=== PATIENT | female | born 1950 | race Caucasian/White ===

== ENCOUNTER → 2017-01-29 | Outpatient (CLI) | payer MEDICARE ==
--- NOTE | 2017-01-29 13:06 | CONS ---
DATE OF CONSULTATION: 01/29/2017 CONSULTATION/NEW PATIENT EVALUATION A 67-year-old lady who has been evaluated in the sleep center for obstructive sleep apnea/hypopnea syndrome. HISTORY OF PRESENT ILLNESS/SLEEP-WAKE EVALUATION: Patient had been diagnosed with obstructive sleep apnea about 9 years ago. At that time was started on treatment with CPAP but she has difficulties with CPAP, was not able to use it and underwent UPPP and nasal surgery. After surgery she feels better, improved her sleep and felt okay until about one year ago when she increased her weight again developed symptoms of awakenings from sleep and tiredness, snoring. SLEEP SCHEDULE: Presently patient's sleep schedule from around 11 p.m. until 8 a.m. FALLING ASLEEP: She sometimes has problem with falling asleep. She has TV set in bedroom. DURING SLEEP: Usually sleeps in the back and side position. According to her , she developed extremely loud snoring at the present time. She wakes up from sleep 2 times with nocturia. DURING THE DAY/WAKE STATE: [place] Sleepiness Scale S4. No history of hypnagogic hallucinations, sleep paralysis or cataplexy. PAST MEDICAL HISTORY: Positive for possible epilepsy with 2 episodes of losing consciousness in her life, which have been stopped on treatment with Dilantin. After stopping Dilantin, she had another episode, hypothyroidism, hyperlipidemia, back problems. PAST SURGICAL HISTORY: , cholecystectomy, UPPP, nasal surgery. tonsillectomy. MEDICATIONS: Dilantin, phenytoin, levothyroxine, Lipitor, Flexeril. SOCIAL HISTORY: Negative for smoking or using alcohol. REVIEW OF SYSTEMS: Snoring, multiple awakenings from sleep, back pain, neck pain. No fevers. No double vision. No recent chest pain. No shortness of breath. No abdominal pain. No bleeding episodes. No blood in urine. No seizure episodes. FAMILY HISTORY: Heart problems, stroke, fibromyalgia, arthritis, asthma, sleep apnea, snoring, ( ), lung problems, diabetes, thyroid problems, acid reflux, ulcers. PHYSICAL EXAMINATION: GENERAL: A 67-year-old lady without distress. VITAL SIGNS: BP 122/92, HR 84, RR 16. Height 5 feet 2 inches. Weight 177. BMI 32.3. Neck 13-1/2 inches in circumference. Temperature 99.2. Oxygen saturation at room air 93%. HEENT: PERRRITESH, NICHOLASMI. Evaluation of oropharynx showed extremely low position of soft palate, restriction of the nasal breathing more on the left side. NECK: Supple. No JVD. Thyroid is not palpable. LUNGS: Clear to percussion and to auscultation. Good air exchange. No wheezing or rhonchi. HEART: S1, S2 regular. No murmurs, gallops or rubs. ABDOMEN: Slightly obese. EXTREMITIES: No clubbing or cyanosis. ASTROCHEMIST: Awake, alert, and oriented x3. Cranial nerves 2 to 7 intact. There is no fasciculation or atrophy noted. No focal deficits observed. IMPRESSION: 1. Snoring, multiple awakenings from sleep, extremely low position of soft palate, history of sleep apnea diagnosed 9 years ago, obstructive sleep apnea-hypopnea syndrome. 2. Mild obesity, body mass index of 32.3. 3. History of possible epilepsy on treatment with Dilantin and phenytoin. 4. Hypothyroidism. 5. Hyperlipidemia. 6. Back pain. 7. Neck pain. 8. Status post section. 9. Status post cholecystectomy. 10. Status post UPPP, tonsillectomy and nasal surgery by Dr. Pa. PLAN: 1. Polysomnography for evaluation of patient's breathing during sleep. 2. CPAP/BiPAP titration if sleep study confirms obstructive sleep apnea-hypopnea syndrome. 3. Preferable position during sleep on the side. 4. No driving if patient feels any sleepiness. Patient is aware of civil and criminal liability for unsafe driving. 5. I will see patient for follow-up visit to explain results of the testing and following plan. Thank you very much for referring this patient for consultation. Sincerely, Shamir Suarez MD, PhD, FAASM. Diplomat of [place] [employer], Sleep Medicine Board by [place] [employer] [employer] [facility] [place]
== END | disposition home or self-care (01) ==
LOC: SLEEP 11:20
PROVIDERS: ATTEND Internal Medicine
DX: G47.33 Obstructive sleep apnea (adult) (pediatric) (principal); E03.9 Hypothyroidism, unspecified; E78.5 Hyperlipidemia, unspecified; E66.9 Obesity, unspecified; Z68.32 Body mass index [BMI] 32.0-32.9, adult; Z90.49 Acquired absence of other specified parts of digestive tract; Z90.89 Acquired absence of other organs; Z79.899 Other long term (current) drug therapy
CPT/HCPCS: 99211

== ENCOUNTER → 2017-07-22 | Outpatient (CLI) | payer MEDICARE | END | disposition home or self-care (01) | LOC: LABWHC1 12:56 | PROVIDERS: ATTEND Family Medicine | DX: Z00.01 Encounter for general adult medical examination with abnormal findings (principal) | CPT/HCPCS: 36415; 93005 ==

== ENCOUNTER 2017-08-07 16:30 | Emergency (ER) | payer MEDICARE ==
[2017-08-07 16:36] VITALS: RESP 18
--- NOTE | 2017-08-07 16:54 | ED ---
Fall HPI - General Chief Complaint: Fall Stated Complaint: Fall Time Seen by Provider: 08/07/17 16:40 Source: patient, family Mode of arrival: wheelchair - History of Present Illness Initial Comments: This is a 67-year-old female who states she tripped in a garage and fell landing on the right side of her forehead. She also did not have this earlier were now complains of right wrist pain she believes she had her outstretched hand help shield her during the fall. As a loss of consciousness blurry vision and pain to her thoracic or lumbar spine no hip knee ankle foot pain. She initially did not complain of the pain in the neck that she now states she has some also again with respect to the right wrist he does have pain where she didn 't initially. This injury occurred just prior to admission. Patient is not on any blood thinners. MD Complaint: fall - Related Data Home Medications Medication Instructions Recorded Confirmed Atorvastatin [Lipitor] 10 mg PO HS 05/18/14 08/07/17 Levothyroxine Sodium [Synthroid] 25 mcg PO QAM 05/18/14 08/07/17 Phenytoin Sodium Extended 200 mg PO HS 05/18/14 08/07/17 [Dilantin] Aspirin 81 mg PO HS 08/07/17 08/07/17 Cholecalciferol (Vitamin D3) 2,000 unit PO QAM 08/07/17 08/07/17 [Vitamin D3] Cyanocobalamin (Vitamin B-12) 1,000 mcg PO DAILY 08/07/17 08/07/17 [Vitamin B-12] Cyclobenzaprine [Flexeril] 10 mg PO DAILY 08/07/17 08/07/17 Adriel Red 300mg 300 mg PO DAILY 08/07/17 08/07/17 Phenytoin Sodium Extended 100 mg PO QAM 08/07/17 08/07/17 [Dilantin] Previous Rx's Medication Instructions Recorded Ibuprofen 800 mg PO Q6HR PRN #20 tablet 08/07/17 Allergies Allergy/AdvReac Type Severity Reaction Status Date / Time No Known Allergies Allergy Verified 08/07/17 16:57 Review of Systems ROS Statement: Those systems with pertinent positive or pertinent negative responses have been documented in the HPI. ROS Other: All systems not noted in ROS Statement are negative. Past Medical History Past Medical History: Hyperlipidemia, Seizure Disorder, Sleep Apnea/CPAP/BIPAP Additional Past Medical History / Comment(s): HX OF "BLACKOUTS AND 1 SEIZURE APPROX 10 YRS AGO",HAVING PAIN RT LOWER ABDOMINAL QUAD History of Any Multi-Drug Resistant Organisms: None Reported Past Surgical History: Section, Cholecystectomy, Tubal Ligation Additional Past Surgical History / Comment(s): CSECTX2 Past Anesthesia/Blood Transfusion Reactions: Motion Sickness Past Psychological History: No Psychological Hx Reported Smoking Status: Never smoker Past Alcohol Use History: None Reported Past Drug Use History: None Reported General Exam - General Exam Comments Initial Comments: This is a well-developed well-nourished awake alert oriented 3 female she demonstrated Carol Coma Scale of 15. Limitations: no limitations General appearance: alert, anxious Head exam: Present: normocephalic, other (Ecchymosis and swelling noted over the right forehead and frontal scalp no step-off or crepitation.) Eye exam: Present: normal appearance, PERRL, EOMI. Absent: scleral icterus, conjunctival injection, periorbital swelling ENT exam: Present: normal exam, mucous membranes moist Neck exam: Present: normal inspection, tenderness, other (Tennis palpation of the paraspinous muscles of the mid cervical level no definite spinous process tenderness. No step-off or crepitation). Absent: lymphadenopathy Respiratory exam: Present: normal lung sounds bilaterally. Absent: respiratory distress, wheezes, rales, rhonchi, stridor Cardiovascular Exam: Present: regular rate, normal rhythm, normal heart sounds. Absent: systolic murmur, diastolic murmur, rubs, gallop, clicks GI/Abdominal exam: Present: soft, normal bowel sounds. Absent: distended, tenderness, guarding, rebound, rigid Rectal exam: Present: deferred Extremities exam: Present: normal inspection, full ROM, tenderness, normal capillary refill, other (Tenderness palpation over the anatomical snuffbox on the right no tenderness palpation of the radius or ulna no tenderness of the right hand proximal to the pain no tenderness.) Neurological exam: Present: alert, oriented X3, CN II-XII intact Psychiatric exam: Present: normal affect, normal mood Skin exam: Present: warm, dry, intact. Absent: rash Course Vital Signs 08/07/17 16:32 Temperature 98.7 F Pulse Rate 78 Respiratory 18 Rate Blood Pressure 146/66 O2 Sat by Pulse 99 Oximetry Procedures - Orthopedic Splinting/Casting Injury #1 Side: right Upper Extremity Injury Location: wrist Upper Extremity Immobilizer: thumb spica Medical Decision Making - Medical Decision Making I did discuss findings with the patient and her . Patient will be discharged he CT is negative for acute findings she has no evidence of concussion at this time. We discharged with orthopedic follow-up. - EKG Data -: EKG Interpreted by Me EKG shows normal: sinus rhythm, axis, intervals, QRS complexes, ST-T waves (EKG shows normal sinus rhythm of 74. Interval 140 QRS duration 72 QT since QTC of 380/421 ST-T WAVE changes) Rate: normal - Radiology Data Radiology results: report reviewed (I did review the imaging and report no acute evidence of fractures or subluxations.), image reviewed Disposition Clinical Impression: Fall, Scaphoid fracture of wrist, Forehead contusion Disposition: HOME SELF-CARE Condition: Good Instructions: Fall Prevention for Older Adults (ED), Scaphoid Fracture (ED), Scalp Contusion in Adults (ED) Prescriptions: Ibuprofen 800 mg PO Q6HR PRN #20 tablet PRN Reason: Pain Referrals: Sharif Rivera DO [Primary Care Provider] - 1-2 days
--- NOTE | 2017-08-07 17:41 | CT ---
EXAMINATION TYPE: CT brain julian schrader DATE OF EXAM: 08/07/2017 COMPARISON: Head CT scan 01/23/2011 HISTORY: Fall injury today. CT DLP: 1467.2 mGycm Automated exposure control for dose reduction was used. TECHNIQUE: CT scan of the head and cervical spine are performed without contrast. FINDINGS: There is large right frontal scalp hematoma. The calvarium appears intact. Ventricles of normal size. There is no mass effect nor midline shift. There is no sign of intracrania l hemorrhage. I see no skull fracture. The cervical vertebra have normal alignment. There is minor degenerative disc changes at C5-6 and C6- 7. Facet joints are intact. Skull base is intact. There is no evidence of a fracture. IMPRESSION: Right frontal scalp hematoma. No intracranial abnormality. Brain is unchanged compared to MR scan of 01/23/2011. Negative CT scan of the cervical spine. No fracture.
--- NOTE | 2017-08-07 17:43 | XR ---
EXAMINATION TYPE: XR wrist complete RT DATE OF EXAM: 08/07/2017 COMPARISON: NONE HISTORY: Wrist pain TECHNIQUE: 4 views FINDINGS: There is some spurring at the scaphoid trapezium joint. I see no fracture nor dislocation. Distal radius and ulna are intact. IMPRESSION: Minor arthritic changes. No fracture.
[2017-08-07 18:50] VITALS: BP 126/60; PULSE 82; TEMP 97.8
== END 2017-08-07 18:59 | disposition home or self-care (01) ==
LOC: EC 16:30
DX: S62.001A Unspecified fracture of navicular [scaphoid] bone of right wrist, initial encounter for closed fracture (principal); S00.83XA Contusion of other part of head, initial encounter; E78.5 Hyperlipidemia, unspecified; G40.909 Epilepsy, unspecified, not intractable, without status epilepticus; G47.30 Sleep apnea, unspecified; Z99.89 Dependence on other enabling machines and devices; Z79.82 Long term (current) use of aspirin; Z79.899 Other long term (current) drug therapy; W19.XXXA Unspecified fall, initial encounter
CPT/HCPCS: 29125; 70450; 72125; 93005; 99284

== ENCOUNTER → 2017-08-27 | Outpatient (CLI) | payer MEDICARE ==
--- NOTE | 2017-08-27 10:17 | MM ---
Reason for exam: additional evaluation requested from prior study. Last mammogram was performed 15 years and 5 months ago. History: Patient is postmenopausal. Family history of breast cancer in maternal aunt at age 70. Excisional biopsy of the right breast, 1979. Took estrogen for 1 year 7 months. Took progesterone for 1 year 7 months. Physical Findings: Nurse did not find any significant physical abnormalities on exam. MG 3D Diag Mammo W/Cad GABE Bilateral CC and MLO view(s) were taken. Prior study comparison: August 26, 2016, mammogram, performed at [facility]. February 05, 2016, mammogram, performed at [facility]. January 23, 2015, mammogram, performed at [facility]. There are scattered fibroglandular densities. There is no discrete abnormality including area of concern. No significant new findings when compared with previous films. These results were verbally communicated with the patient and result sheet given to the patient on 08/27/17. ASSESSMENT: Negative, BI-RAD 1 RECOMMENDATION: Routine screening mammogram of both breasts in 1 year.
== END | disposition home or self-care (01) ==
LOC: RADMAMWWP 09:22
PROVIDERS: ATTEND Family Medicine
DX: R92.2 Inconclusive mammogram (principal)
CPT/HCPCS: G0204; G0279

== ENCOUNTER → 2017-10-01 | Outpatient (CLI) | payer MEDICARE ==
--- NOTE | 2017-10-01 11:51 | PN ---
PROGRESS NOTE FOLLOW-UP VISIT DATE OF SERVICE: 10/01/2017 A 67-year-old lady had been followed in sleep center for treatment of obstructive sleep apnea-hypopnea syndrome. According to home sleep apnea test, the apnea-hypopnea index 26. During the previous visit in June of 2017. apnea-hypopnea index reading from her machine was in average range 7.3 and I increased pressure in her CPAP unit to 8 cm of water. At that time it was 7 cm of water. Patient continued to use her CPAP equipment without significant problems related to mask, pressure, humidity. Sometimes she has difficulties to breathe through her nose. She is using with that treatment she breathes better. [place] Sleepiness Scale is 2. No snoring with the machine. I checked patient's CPAP unit. CPAP pressure is 8 cm of water. Ramp is 15 minutes. The usage is 100% of the time more than 4 hours, average 8.4 hours. Leak is 11 L/minute, which is acceptable in normal range. Apnea-hypopnea index for the last month is 5.4. MEDICATIONS: Phenytoin, Dilantin, levothyroxine, Lipitor, Flexeril, and Zyrtec on p.r.n. basis. PHYSICAL EXAM: During physical exam, patient in no distress. VITAL SIGNS: BP 132/58, HR 80, RR 16, height 5 feet 2 inches, weight 182, BMI 33.1, temperature 98.6. HEENT: PERRLA, EOMI. Evaluation of oropharynx showed low position of soft palate. NECK: Supple, no JVD. Thyroid is not palpable. LUNGS: Clear to percussion and to auscultation. Good air exchange. No wheezing or rhonchi. HEART: S1, S2 regular. No murmurs, gallops, or rubs. ABDOMEN: Slightly obese. EXTREMITIES: No clubbing or cyanosis. MILK ROUTE DELIVERER: Awake, alert, and oriented X3. Cranial nerves 2 to 7 intact. There is no fasciculation or atrophy. noted. No focal deficits observed. IMPRESSION: 1. Moderate to close severe obstructive sleep apnea-hypopnea syndrome; apnea-hypopnea index 26 by results of home sleep apnea test, most on control with CPAP at 8 cm of water. Patient demonstrated 100% compliance with treatment benefitting from treatment. 2. Mild obesity. 3. History of possible epilepsy. 4. Hypothyroidism. 5. Hyperlipidemia. 6. History of neck pain. 7. Status post . 8. Status post cholecystectomy. 9. Status post UPPP and tonsillectomy. PLAN: 1. Continue treatment with CPAP every night for the whole night with a pressure 8 cm of water. 2. Losing weight. 3. Sleep hygiene with regular time in bed for at least 8 hours. 4. No driving if feeling sleepiness. Thank you very much for allowing me to participate in management of your patient. Sincerely, Shamir Suarez MD, PhD, FAASM Diplomat of [place] [employer] [place] [employer] [facility] [place] MMODL / IJN: [id number] /
== END | disposition home or self-care (01) ==
LOC: SLEEP 09:57
PROVIDERS: ATTEND Internal Medicine
DX: G47.33 Obstructive sleep apnea (adult) (pediatric) (principal); E66.9 Obesity, unspecified; E03.9 Hypothyroidism, unspecified; E78.5 Hyperlipidemia, unspecified; M54.2 Cervicalgia; Z79.899 Other long term (current) drug therapy; Z90.49 Acquired absence of other specified parts of digestive tract; Z99.89 Dependence on other enabling machines and devices; Z98.890 Other specified postprocedural states

== ENCOUNTER → 2017-12-25 | Outpatient (CLI) | payer MEDICARE ==
[2017-12-25 11:10] LABS: Basophils % (A) 1 %; Eosinophils # (A) 0.1 k/uL (0-0.7); Eosinophils % (A) 1 %; HCT 44.7 % (34.0-46.0); HGB 14.9 gm/dL (11.4-16.0); Lymphocytes # (A) 1.4 k/uL (1.0-4.8); Lymphocytes % (A) 25 %; MCH 31.3 pg (25.0-35.0); MCHC 33.3 g/dL (31.0-37.0); Monocytes # (A) 0.3 k/uL (0-1.0); Monocytes % (A) 5 %; Neutrophils % (A) 68 %; Platelet Count 209 k/uL (150-450); RBC 4.76 m/uL (3.80-5.40); RDW 12.7 % (11.5-15.5); WBC 5.9 k/uL (3.8-10.6)
[2017-12-25 11:31] LABS: Phenytoin (Dilantin) 13.2 ug/mL
[2017-12-25 16:45] LABS: Protein, Total 7.1 g/dL (6.2-8.2)
[2017-12-28 14:07] LABS: Albumin 4.62 g/dL (3.80-4.90); Gamma Globulin 0.79 g/dL (0.70-1.50)
[2017-12-29 12:30] LABS: Lyme IgG/IgM 0.1 Index
[2017-12-30 19:47] LABS: Arsenic Whole Blood < 2 mcg/L (< 23); Mercury Whole Blood < 2 mcg/L (< 11)
== END | disposition home or self-care (01) ==
LOC: LABWHC1 10:30
PROVIDERS: ATTEND Psychiatry & Neurology Neurology
DX: G90.09 Other idiopathic peripheral autonomic neuropathy (principal); G40.009 Localization-related (focal) (partial) idiopathic epilepsy and epileptic syndromes with seizures of localized onset, not intractable, without status epilepticus
CPT/HCPCS: 36415; 80185; 82175; 82570; 83655; 83825; 84165; 84450; 84460; 85025; 86618

== ENCOUNTER → 2019-02-11 | Outpatient (CLI) | payer MEDICARE ==
--- NOTE | 2019-02-14 09:03 | MM ---
Reason for exam: screening (asymptomatic). Last mammogram was performed 1 year and 6 months ago. History: Patient is postmenopausal. Family history of breast cancer in maternal aunt at age 70. Excisional biopsy of the right breast, 1979. Took estrogen for 1 year 7 months. Took progesterone for 1 year 7 months. Physical Findings: A clinical breast exam by your physician is recommended on an annual basis and results should be correlated with mammographic findings. MG 3D Screening Mammo W/Cad Bilateral CC and MLO view(s) were taken. Prior study comparison: August 27, 2017, bilateral MG 3d diag mammo w/cad GABE. August 26, 2016, mammogram, performed at [facility]. There are scattered fibroglandular densities. No suspicious abnormality. No significant changes when compared with prior studies. ASSESSMENT: Negative, BI-RAD 1 RECOMMENDATION: Routine screening mammogram of both breasts in 1 year.
== END | disposition home or self-care (01) ==
LOC: RADMAMWWP 09:09
PROVIDERS: ATTEND Family Medicine
DX: Z12.31 Encounter for screening mammogram for malignant neoplasm of breast (principal)
CPT/HCPCS: 77063; 77067

== ENCOUNTER → 2019-05-05 | Outpatient (CLI) | payer MEDICARE ==
[2019-05-05 12:57] LABS: African American GFR (CKD) >90 (>60 ml/min/1.73 sqM); Blood Urea Nitrogen 23 mg/dL (7-17)
--- NOTE | 2019-05-05 14:51 | CT ---
EXAMINATION TYPE: CT abdomen pelvis w con DATE OF EXAM: 05/05/2019 HISTORY: Hematuria x6 months CT DLP: 1034.6mGycm Automated Exposure Control for Dose Reduction was Utilized. CONTRAST: CT scan of the abdomen and pelvis is performed with IV Contrast, patient injected with 100 mL of Isov ue 300. COMPARISON: CT abdomen and pelvis August 14, 2011 FINDINGS: LUNG BASES: Dependent atelectasis bilaterally. Right basilar linear scarring and/or atelectasis. Stab le tiny pericardial effusion. LIVER/GB: Scattered subcentimeter hypodense lesions throughout the liver are too small to further shivani racterize for presumed benign. Few are greater than 1 cm consistent with simple thin-walled cysts. Ch olecystectomy clips are redemonstrated. PANCREAS: No significant abnormality is seen. SPLEEN: No significant abnormality is seen. ADRENALS: No significant abnormality is seen. KIDNEYS: Symmetric cortical medullary uptake and excretion without hydronephrosis seen bilaterally. S imple appearing parapelvic cysts are noted bilaterally more prominent in the left kidney versus right kidney. Bladder show satisfactory distention without intraluminal mass or wall thickening. Some enrique cent left-sided pelvic phleboliths are noted. BOWEL: Oral contrast reaches level of the terminal ileum making evaluation of colon suboptimal. No valdes spicious small large bowel dilatation. Some prominence of fecal material in the right and transverse colon is noted. Findings consistent with mild proximal colonic fecal stasis. UTERUS/ADNEXA: Anteverted uterus. Ovaries are normal in size in the adnexa. LYMPH NODES: No greater than 1cm abdominal or pelvic lymph nodes are appreciated. OSSEOUS STRUCTURES: No significant abnormality is seen. OTHER: Mild calcified plaque of the aorta with more prominent focal calcified plaque anterior left re nal artery at origin. IMPRESSION: 1. No significant findings is seen to account for patient's clinical symptoms of hematuria. In partic ular no suspicious mass or renal calculus noted bilaterally.
== END | disposition home or self-care (01) ==
LOC: RADCTMAIN 12:23
PROVIDERS: ATTEND Urology
DX: R31.9 Hematuria, unspecified (principal)
CPT/HCPCS: 82565; 84520; 74177; 36415; Q9967

== ENCOUNTER → 2019-07-19 | Outpatient (CLI) | payer MEDICARE ==
--- NOTE | 2019-07-19 14:20 | CONS ---
CONSULTATION CONSULTATION NOTE: For sleep apnea. This is a 69-year-old female patient who is coming in to establish herself with me regarding her obstructive sleep apnea treatment. The patient was diagnosed having JESSICA back in 2018. At that time, she was given an AHI of 26, based on the sleep study that was done at our sleep center. The patient currently is using CPAP at a pressure of 8 cm of water. On today's evaluation, she feels great, she is not having any snoring. She denies quitting breathing in the middle of the night. She is waking up refreshed and alert during the day. She is currently retired. She goes to bed around 11 pm and she sleeps around 8 hours and she wakes up very refreshed and alert during the day. Her current Arnold score is only at 1. She is losing weight and she has lost approximately 15 pounds since her diagnosis of obstructive sleep apnea back in 2018. PAST MEDICAL HISTORY: 1. JESSICA, details above. 2. Hyperlipidemia. 3. Hypothyroidism. 4. History of seizure disorder. PAST SURGICAL HISTORY: Includes tonsillectomy, cholecystectomy, , adenoid resection. SOCIAL HISTORY: Negative for smoking or alcohol. No IV drugs or substance abuse. ALLERGIES: Not known. OUTPATIENT MEDICATION LIST: Includes Dilantin 200 mg 1 in the morning, 2 in the evening, and another 30 mg at bedtime, Levothyroxine 25 mg p.o. q. daily, Lipitor 25 mg p.o. q. daily, aspirin 81 mg p.o. q. daily, vitamin D 1000 units twice a day, Melatonin and Zyrtec and Flonase. REVIEW OF SYSTEMS: A 14-point review of system was done and positive findings are mentioned in history of present illness. No major hypersomnia or sleepiness during the day. PHYSICAL EXAMINATION: BP is 144/98, pulse 82, respirations 16, temp 98.5, saturation 97% on room air. Height is 5, 2, weight 165 pounds and BMI 30.1, neck size is 13-1/2 inches. GENERAL APPEARANCE: Calm, comfortable. HEAD: Atraumatic, normocephalic. NECK: Supple. There is no JVD. No goiter or neck masses. Mallampati class IV. LUNGS: Clear to auscultation. HEART: Heart sounds are regular rate and rhythm. Normal S1, S2. No S3, S4. No murmurs. ABDOMEN: Soft, nontender. No organomegaly. EXTREMITIES: No edema. No cyanosis or clubbing. IMPRESSION: 1. Obstructive sleep apnea, moderately severe. Apnea-hypopnea index of 26, currently on CPAP pressure of 8 with excellent clinical response and compliance. 2. Hypothyroidism. 3. Hyperlipidemia. 4. Chronic seasonal allergies. PLAN: 1. Continue CPAP therapy at the same level of pressure which is 8. 2. Eliminate ramp time. 3. Offer the patient the Nuance Pro medium-size nose pillows. 4. Compliance data was checked. 5. Will see him back in a year's time. Treatment was successful. No need for any further adjustments on today's evaluation. MMODL / IJN: [id number] /
== END | disposition home or self-care (01) ==
LOC: SLEEP 10:01
PROVIDERS: ATTEND Internal Medicine Critical Care Medicine
DX: G47.33 Obstructive sleep apnea (adult) (pediatric) (principal); E03.9 Hypothyroidism, unspecified; E78.5 Hyperlipidemia, unspecified; J30.2 Other seasonal allergic rhinitis; Z79.82 Long term (current) use of aspirin; Z79.899 Other long term (current) drug therapy
CPT/HCPCS: 99211

== ENCOUNTER → 2019-09-22 | Outpatient (CLI) | payer MEDICARE ==
--- NOTE | 2019-09-22 11:17 | USB ---
Reason for exam: clinical finding. History: Patient is postmenopausal. Family history of breast cancer in maternal aunt at age 70. Excisional biopsy of the right breast, 1979. Took estrogen for 1 year 7 months. Took progesterone for 1 year 7 months. Indicated problem(s): lump or thickening in both breasts. Physical Findings: Nurse Summary: patient states she fells a thickness around area of prior biopsy x 2 months (nurse TM). US Breast Limited RT Right limited breast ultrasound including focal area of concern, retroareolar and axilla demonstrates a 4 x 2 x 3mm oval, cystic, well defined, posterior wall lesion at 10 o'clock and a 3 x 2 x 3mm oval, cystic lesion at 12 o'clock. These results were verbally communicated with the patient and result sheet given to the patient on 09/22/19. ASSESSMENT: Benign, BI-RAD 2 RECOMMENDATION: Return to routine screening mammogram schedule for both breasts. Back on schedule.
== END | disposition home or self-care (01) ==
LOC: RADUSWWP 10:06
PROVIDERS: ATTEND Family Medicine
DX: N63.10 Unspecified lump in the right breast, unspecified quadrant (principal)

== ENCOUNTER → 2020-09-12 | Outpatient (CLI) | payer MEDICARE ==
--- NOTE | 2020-09-14 14:12 | MM ---
Reason for exam: screening (asymptomatic). Last mammogram was performed 1 year and 7 months ago. History: Patient is postmenopausal. Family history of breast cancer in maternal aunt at age 70. Excisional biopsy of the right breast, 1979. Took estrogen for 1 year 7 months. Took progesterone for 1 year 7 months. Physical Findings: A clinical breast exam by your physician is recommended on an annual basis and results should be correlated with mammographic findings. MG 3D Screening Mammo W/Cad Bilateral CC and MLO view(s) were taken. Prior study comparison: February 11, 2019, bilateral MG 3d screening mammo w/cad. August 27, 2017, bilateral MG 3d diag mammo w/cad GABE. There are scattered fibroglandular densities. Focal asymmetry anterior 10 o'clock right breast is unchanged. No significant changes when compared with prior studies. ASSESSMENT: Benign, BI-RAD 2 RECOMMENDATION: Routine screening mammogram of both breasts in 1 year.
== END | disposition home or self-care (01) ==
LOC: RADMAMWWP 09:34
PROVIDERS: ATTEND Family Medicine
DX: Z12.31 Encounter for screening mammogram for malignant neoplasm of breast (principal)
CPT/HCPCS: 77063; 77067

== ENCOUNTER → 2020-11-20 | Outpatient (CLI) | payer MEDICARE ==
--- NOTE | 2020-11-20 11:25 | PN ---
PROGRESS NOTE Mirna is 70 and coming in for annual check regarding obstructive sleep apnea. The patient is known to have JESSICA and she has been diagnosed at least 3 years ago and she has been on CPAP since. Her AHI at baseline was 26. On today's evaluation, the patient remains on a CPAP pressure of 8 cm of water. She is using AirFit P10 medium- sized nasal pillow. Her weight is 165, which is stable over the past one year. Based on the compliance data, she has been averaging around 8.8 hours of CPAP use at night and her CPAP use for more than 4 hours is 100%. Leak is around 20 L/minutes. Her AHI is down to 5.6. The patient is refreshed and alert during the day. Blood pressure is stable. No significant issues with hypersomnia or sleepiness. Does not fall asleep during day-to-day activities. She is having some soreness in her nostrils, probably related to the nasal pillows especially when she makes the head gear quite tight. REVIEW OF SYSTEMS: Fourteen-point review of system was done. Positive findings are mentioned in history of present illness. No angina. No palpitations. No chest pain. No heartburn. She is feeling refreshed and alert during the day. Keyser score is at 2. PHYSICAL EXAMINATION: VITAL SIGNS: BP is 140/63, pulse 92, respirations 12, temperature 96.9, saturation 95% on room air. Height is 5 feet 2 inches. Weight is 165, and BMI is 29.6. GENERAL APPEARANCE: Calm, comfortable. HEAD: Atraumatic, normocephalic. NECK: Supple. There is no JVD. No goiter or neck masses. LUNGS: Clear to auscultation. HEART: Heart sounds are regular rate and rhythm. Normal S1, S2. No S3, S4. No murmurs. ABDOMEN: Soft, nontender. No organomegaly. EXTREMITIES: No edema. No cyanosis or clubbing. NEUROLOGIC: Awake and alert. There is no focal neurological deficits. IMPRESSION: 1. Obstructive sleep apnea, moderate severe AHI of 26. The patient is a long-time CPAP and currently she remains on a CPAP pressure of 8 cm of water. 2. Hypersomnia, recovered. 3. History of seizure disorder, which is currently inactive and stable. 4. Hypothyroidism. 5. Hyperlipidemia. PLAN: 1. Continue with CPAP therapy same level of pressure, which is 8. 2. Continue AirFit P10 nasal pillows. 3. I offered a DreamWear under the nose medium-size nose mask as an alternative which will relieve her nostrils from the pressure induced by the pillows. 4. Maintaining good sleep schedule and hygiene measures. 5. See me back in a year's time in followup. 6. Refills were given to [facility]. MMODL / IJN: [id number] /
== END ==
LOC: SLEEP 09:48
PROVIDERS: ATTEND Internal Medicine Critical Care Medicine
DX: G47.33 Obstructive sleep apnea (adult) (pediatric) (principal); E03.9 Hypothyroidism, unspecified; E78.5 Hyperlipidemia, unspecified; Z86.69 Personal history of other diseases of the nervous system and sense organs

== ENCOUNTER → 2021-10-04 | Outpatient (CLI) | payer MEDICARE ==
--- NOTE | 2021-10-07 14:02 | MM ---
Reason for exam: screening (asymptomatic). Last mammogram was performed 1 year and 1 month ago. History: Patient is postmenopausal. Family history of breast cancer in maternal aunt at age 70. Excisional biopsy of the right breast, 1979. Took estrogen for 1 year 7 months. Took progesterone for 1 year 7 months. Physical Findings: A clinical breast exam by your physician is recommended on an annual basis and results should be correlated with mammographic findings. MG 3D Screening Mammo W/Cad Bilateral CC and MLO view(s) were taken. XCCL view(s) were taken of the left breast. Prior study comparison: September 12, 2020, bilateral MG 3d screening mammo w/cad. February 11, 2019, bilateral MG 3d screening mammo w/cad. There are scattered fibroglandular densities. There is chronic nodularity in the left breast. Unchanged anterior focal asymmetries right breast. ASSESSMENT: Benign, BI-RAD 2 RECOMMENDATION: Routine screening mammogram of both breasts in 1 year.
== END | disposition home or self-care (01) ==
LOC: RADMAMWWP 11:43
PROVIDERS: ATTEND Family Medicine
DX: Z12.31 Encounter for screening mammogram for malignant neoplasm of breast (principal)
CPT/HCPCS: 77063; 77067

== ENCOUNTER → 2022-02-25 | Outpatient (CLI) | payer MEDICARE ==
--- NOTE | 2022-02-25 16:16 | P.PN ---
Subjective Progress Note Date: 02/25/22 72-year-old female patient coming in follow-up regarding her obstructive sleep apnea. Her last evaluation was on 11/20/2020. The patient is known to have was a with an AHI of 26 and the patient is utilizing CPAP therapy at a pressure of 8 cm of water. She was using the Airfit P10 and nasal pillows. During the last evaluation, introduced the dreamware under the nose nasal mask. She is doing well with the current mask and she is requesting a refill. I check her compliance data on the machine and the patient has been utilizing the machine every night without interruption. She's been averaging around 8 point hours of CPAP use per night and her AHI is down to 5.0 while on treatment without any c entral events. No significant weight gain. No hypersomnia and sleepiness during the day. No snoring. Her also has obstructive sleep apnea and he is utilizing his CPAP and as such both and on CPAP therapy. No issues with alertness awakeness during the day. No issues with driving the car and she does not fall asleep while driving. No nighttime chest pain or shortness of breath or heartburn or cardiac arrhythmias. Objective - Exam BP is 114/59, pulse is 67, respirations 16, temperature 96.2, weight 168 pounds, [place] score is at 1 and a BMI is at 30.2 The patient appeared well nourished and normally developed. Vital signs as documented. Head exam is unremarkable. No scleral icterus or corneal arcus noted . Neck is without jugular venous distension, thyromegaly, or carotid bruits. Carotid upstrokes are brisk bilaterally. Lungs are clear to auscultation and percussion. Cardiac exam reveals the PMI to be normally sized and situated. Rhythm is regular. First and second heart sounds normal. No murmurs, rubs or gallops. Abdominal exam reveals normal bowel sounds, no masses, no organomegaly and no aortic enlargement. Extremities are nonedematous and both femoral and pedal pulses are normal.Examination of the skin revealed no evidence of significant rashes, suspicious appearing nevi or other concerning lesions.Neurologically, the patient is awake and alert and the patient does not have any focal neurological deficit. Cranial nerves are essentially intact. Assessment and Plan Plan: Obstructive sleep apnea, moderately severe, AHI of 26. The patient continues to receive successful CPAP therapy at a pressure of 8 cm of water. No active issues for now. Her hypersomnia is essentially recovered and the patient is extremely compliant Seizure disorder, currently inactive in stable Hypothyroidism Hyperlipidemia Plan Continue CPAP therapy at pressure of 8 cm of water with C-Flex of 3. No need for any adjustments. Continue using the same dreamware under the nose mask, medium size. Encourage weight loss. Intermittent the sleep hygiene measures. Treatment essentially successful for now. Compliance data was checked. Refills will be sent to [facility] the patient's DME company. The patient will be seeing me back and 1-2 years time in follow-up. Treatment is successful. No issues for now.
== END | disposition home or self-care (01) ==
LOC: SLEEP 15:11
PROVIDERS: ATTEND Internal Medicine Critical Care Medicine
DX: G47.33 Obstructive sleep apnea (adult) (pediatric) (principal); G40.909 Epilepsy, unspecified, not intractable, without status epilepticus; E03.9 Hypothyroidism, unspecified; E78.5 Hyperlipidemia, unspecified

== ENCOUNTER 2022-03-19 11:20 | Emergency (ER) | payer MEDICARE ==
[2022-03-19] MEDS ORDERED: BEBTELOVIMAB (EUA) 175 MG/2 ML VIAL IV ONE (12:00)
--- NOTE | 2022-03-19 12:32 | ED ---
URI HPI - General Chief Complaint: Upper Respiratory Infection Stated Complaint: Covid+/antibodies Time Seen by Provider: 03/19/22 11:29 Source: patient, RN notes reviewed Mode of arrival: ambulatory Limitations: no limitations - History of Present Illness Initial Comments: This is a 72-year-old female who presents to the emergency department requesting COVID antibody infusion. Yesterday, she began to experience coughing, congestion, and fatigue. She took an at home COVID test and tested positive. Denies any sick contacts. Her primary care provider told her that the Paxlovid will interact with her Dilantin, and he instructed her to come to the emergency department for the antibody infusion. Denies any chest pain or shortness of breath. Denies any fevers, chills, sore throat, dyspnea, chest pain, palpitations, abdominal pain, nausea, vomiting, diarrhea, back pain, or headaches. MD Complaint: cough, nasal congestion Onset/Timin -: days(s) Associated Symptoms: myalgias, headache, nasal congestion - Related Data Home Medications Medication Instructions Recorded Confirmed Atorvastatin [Lipitor] 10 mg PO HS 05/18/14 08/07/17 Levothyroxine Sodium [Synthroid] 25 mcg PO QAM 05/18/14 08/07/17 Phenytoin Sodium Extended 200 mg PO HS 05/18/14 08/07/17 [Dilantin] Aspirin 81 mg PO HS 08/07/17 08/07/17 Cholecalciferol (Vitamin D3) 2,000 unit PO QAM 08/07/17 08/07/17 [Vitamin D3] Cyanocobalamin (Vitamin B-12) 1,000 mcg PO DAILY 08/07/17 08/07/17 [Vitamin B-12] Cyclobenzaprine [Flexeril] 10 mg PO DAILY 08/07/17 08/07/17 Adriel Red 300mg 300 mg PO DAILY 08/07/17 08/07/17 Phenytoin Sodium Extended 100 mg PO QAM 08/07/17 08/07/17 [Dilantin] Previous Rx's Medication Instructions Recorded Ibuprofen 800 mg PO Q6HR PRN #20 tablet 08/07/17 Allergies Allergy/AdvReac Type Severity Reaction Status Date / Time No Known Allergies Allergy Verified 03/19/22 11:27 Review of Systems ROS Statement: Those systems with pertinent positive or pertinent negative responses have been documented in the HPI. ROS Other: All systems not noted in ROS Statement are negative. Past Medical History Past Medical History: Hyperlipidemia, Seizure Disorder, Sleep Apnea/CPAP/BIPAP Additional Past Medical History / Comment(s): HX OF "BLACKOUTS AND 1 SEIZURE APPROX 10 YRS AGO",HAVING PAIN RT LOWER ABDOMINAL QUAD History of Any Multi-Drug Resistant Organisms: None Reported Past Surgical History: Section, Cholecystectomy, Tubal Ligation Additional Past Surgical History / Comment(s): CSECTX2 Past Anesthesia/Blood Transfusion Reactions: Motion Sickness Past Psychological History: No Psychological Hx Reported Past Alcohol Use History: None Reported Past Drug Use History: None Reported General Exam Limitations: no limitations General appearance: alert, in no apparent distress Head exam: Present: atraumatic, normocephalic, normal inspection ENT exam: Present: normal exam, mucous membranes moist, normal external ear exam Neck exam: Present: normal inspection. Absent: tenderness, meningismus, lymphadenopathy Respiratory exam: Present: normal lung sounds bilaterally. Absent: respiratory distress, wheezes, rales, rhonchi, stridor Cardiovascular Exam: Present: regular rate, normal rhythm, normal heart sounds. Absent: systolic murmur, diastolic murmur, rubs, gallop, clicks Neurological exam: Present: alert, oriented X3, CN II-XII intact Psychiatric exam: Present: normal affect, normal mood Skin exam: Present: warm, dry, intact, normal color. Absent: rash Course Vital Signs 03/19/22 03/19/22 11:23 11:30 Temperature 98.1 F Pulse Rate 72 Respiratory 18 24 Rate Blood Pressure 121/63 O2 Sat by Pulse 99 Oximetry Medical Decision Making - Medical Decision Making This is a 72-year-old female who presents to the emergency department for COVID antibody infusion. Patient takes Dilantin and this will interact with the Jj per her primary care provider. Patient was given the antibody infusion and monitored for an hour afterwards without incident. Instructed her to quarantine for 5 days and practice extra precautions for an additional 5 days, including always wearing a mask around others and avoiding travel. Advised remaining well-hydrated and continuing with symptomatic management. Return precautions reviewed in depth, the patient is instructed to return to the emergency department with any new, worsening, or concerning symptoms. Patient verbalized understanding. This case was discussed in detail with the attending ED physician. Presentation, findings, and treatment plan discussed in detail as well. Disposition Clinical Impression: COVID-19 Disposition: HOME SELF-CARE Instructions (If sedation given, give patient instructions): COVID-19 (Coronavirus Disease 2019) (ED), How to Recover from COVID-19 at Home (ED) Additional Instructions: Return to the emergency department with any new, worsening, or concerning symptoms. Continue with symptomatic management. Make sure that you quarantine for 5 days and practice extra precautions for an additional 5 days, including always wearing a mask around others and avoiding travel. Is patient prescribed a controlled substance at d/c from ED?: No Referrals: Sharif Rivera, [Primary Care Provider] - 1-2 days
[2022-03-19 13:32] VITALS: BP 121/66; PULSE 67; RESP 18; TEMP 97.9
== END 2022-03-19 13:31 | disposition home or self-care (01) ==
LOC: EC 11:20
DX: U07.1 COVID-19 (principal); E78.5 Hyperlipidemia, unspecified
CPT/HCPCS: 99283; Q0222

== ENCOUNTER → 2022-04-10 | Outpatient (CLI) | payer MEDICARE ==
--- NOTE | 2022-04-10 17:42 | BD ---
EXAMINATION TYPE: Axial Bone Density DATE OF EXAM: 04/10/2022 COMPARISON: FIRST DEXA AT [facility] CLINICAL HISTORY: 72 years year old Female. ICD-10 CODE: M89.9 DISORDER OF BONE UNSPEC Height: 61.5IN Weight: 165 FRAX RISK QUESTIONS: Family History (Parent hip fracture): YES History of Fracture in Adulthood: YES Secondary Osteoporosis: RISK FACTORS HISTORY OF: Family History of Osteoporosis: YES Active: YES Postmenopausal woman: YES Take estrogen and/or progesterone medications: YES ABOUT 20 YEARS AGO How lon MONTHS MEDICATIONS: Thyroid Medications: YES Which medication: Levothyroxine How Lon YEARS Additional Medications: DILANTIN, LIPITOR, ALLERGY MED, VITAMIN D Additional History: EXAM MEASUREMENTS: Bone mineral densitometry was performed using the [employer] System. Bone mineral density as measured about the Lumbar spine is: ----- L1-L4(G/cm2): 0.965 T Score Values are as follows: ----- L1: -1.5 ----- L2: -1.1 ----- L3: -1.3 ----- L4: -3.1 ----- L1-L4: -1.8 FIRST DEXA AT [facility] Bone mineral density about the R hip (g/cm2): 0.863 Bone mineral density about the L hip (g/cm2): 0.864 T Score values are as follows: -----R Neck: -2.0 -----L Neck: -2.4 -----R Total: -1.1 -----L Total: -1.1 FIRST DEXA AT [facility] FRAX%s: The graph provided illustrates a 32.8% chance for a major osteoporotic fx and a 10.6% chance for the hips probability for fx in 10 years time. IMPRESSION: Osteopenia (T Score between -2.5 and -1). Note that measurements are bordering on osteoporosis at the left hip. There is slightly increased risk of fracture and the patient may be considered for treatment. Re-Screen 2-5 years. NOTE: T-SCORE=SD OF THE YOUNG ADULT MEAN.
== END | disposition home or self-care (01) ==
LOC: RADBDWWP 09:08
PROVIDERS: ATTEND Family Medicine
DX: M89.9 Disorder of bone, unspecified (principal)
CPT/HCPCS: 77080

== ENCOUNTER 2022-05-21 08:26 | Day surgery (SDC) | payer MEDICARE ==
[2022-05-20 08:31] VITALS: BMI 29.2
[~2022-05-21 08:26] MED LIST: LIDOCAINE 1% (10MG/ML) FOR IV START INTRADERMA PRN
[2022-05-21 09:23] VITALS: TEMP 97.3
[2022-05-21] MEDS: LACTATED RINGERS 1,000 ML IV SCH ×2 (09:39→09:53)
[2022-05-21] MEDS ORDERED: PROPOFOL 10 MG/ML 20 ML VIAL IV ONE (09:55)
--- NOTE | 2022-05-21 10:12 | P.PCN ---
Date of Procedure: 05/21/22 Procedure(s) Performed: BRIEF HISTORY: Patient is a 72-year-old pleasant white female scheduled for an elective colonoscopy as a part of screening for colorectal neoplasia. PROCEDURE PERFORMED: Colonoscopy with snare polypectomy. PREOPERATIVE DIAGNOSIS: Screening for colon cancer. IV sedation per Anesthesia. PROCEDURE: After informed consent was obtained, the patient, was brought into the endoscopy unit. IV sedation was administered by Anesthesia under continuous monitoring. Digital rectal examination was normal. Initially the Olympus CF-160 flexible video colonoscope was then inserted in the rectum, gradually advanced into the cecum without any difficulty. Careful examination was performed as the scope was gradually being withdrawn. Ileocecal valve and the appendiceal orifice were visualized and appeared normal. Prep was excellent. Mucosa of the cecum, ascending colon, transverse colon, descending colon appeared normal. In the sigmoid colon there was a 5 mm sessile polyp removed by snare polypectomy. Rest of the, sigmoid colon, and rectum appeared normal. Retroflexion was performed in the rectum and no lesions were seen. The patient tolerated the procedure well. IMPRESSION: 5 mm sigmoid: Polyp status post polypectomy Rest of the colon appeared normal RECOMMENDATIONS: Findings of this examination were discussed with the patient as well as her family. She was advised to follow with the biopsy results. If the biopsies adenoma she can have a repeat colonoscopy in 5 years..
[2022-05-21 10:43] VITALS: BP 111/82; PULSE 70; RESP 15
== END 2022-05-21 10:46 | disposition home or self-care (01) ==
LOC: ORWHC2ENDO 08:26
PROVIDERS: ATTEND Internal Medicine Gastroenterology
DX: Z12.11 Encounter for screening for malignant neoplasm of colon (principal); D12.5 Benign neoplasm of sigmoid colon; E78.5 Hyperlipidemia, unspecified; E07.9 Disorder of thyroid, unspecified; Z86.69 Personal history of other diseases of the nervous system and sense organs; Z79.82 Long term (current) use of aspirin; Z79.890 Hormone replacement therapy; Z79.899 Other long term (current) drug therapy
CPT/HCPCS: 88305; 45385; J2704

== ENCOUNTER → 2022-11-20 | Outpatient (CLI) | payer MEDICARE ==
--- NOTE | 2022-11-20 10:06 | CT ---
EXAMINATION TYPE: CT brain wo con DATE OF EXAM: 11/20/2022 HISTORY: epilepsy, tremor CT DLP: 1171 mGycm. Automated Exposure Control for Dose Reduction was Utilized. TECHNIQUE: CT scan of the head is performed without contrast. COMPARISON: CT brain August 07, 2017. FINDINGS: There is no acute intracranial hemorrhage or midline shift identified. There is mild diff use ventricular and sulcal prominence with sulcal prominence greatest over the bilateral frontal lobe s redemonstrated. Jack-white matter differentiation fairly well-preserved. Hyperostosis frontalis re demonstrated. The globes are intact and the visualized sinuses are clear. IMPRESSION: No acute intracranial hemorrhage or midline shift. There is mild generalized cerebral a trophy greatest over bilateral frontal lobes redemonstrated. No significant new findings since most recent prior CT.
== END | disposition home or self-care (01) ==
LOC: RADCTMAIN 09:28
PROVIDERS: ATTEND Psychiatry & Neurology Neurology
DX: G40.209 Localization-related (focal) (partial) symptomatic epilepsy and epileptic syndromes with complex partial seizures, not intractable, without status epilepticus (principal); G31.9 Degenerative disease of nervous system, unspecified; G25.0 Essential tremor; G62.9 Polyneuropathy, unspecified
CPT/HCPCS: 70450

== ENCOUNTER → 2023-07-15 | Outpatient (CLI) | payer MEDICARE ==
[2023-07-15 17:16] LABS: Basophils # (A) 0.04 X 10*3/uL (0.00-0.10); Basophils % (A) 0.9 %; Eosinophils # (A) 0.01 X 10*3/uL (0.04-0.35); Eosinophils % (A) 0.2 %; HCT 36.8 % (37.2-46.3); HGB 11.5 g/dL (12.0-15.0); Lymphocytes # (A) 1.01 X 10*3/uL (0.90-5.00); MCH 27.8 pg (27.0-32.0); MCHC 31.3 g/dL (32.0-37.0); MCV 88.9 FL (80.0-97.0); Mean Platelet Volume 10.7 FL (9.5-12.2); Monocytes % (A) 6.5 %; NRBC Per 100 WBC 0 X 10*3/uL (0.00-0.01); Neutrophils # (A) 3.22 X 10*3/uL (1.80-7.70); Neutrophils % (A) 70.2 %; Platelet Count 303 X 10*3/uL (140-440); RBC 4.14 X 10*6/uL (4.10-5.20); RDW 14.2 % (11.5-14.5); WBC 4.59 X 10*3/uL (4.50-10.00)
[2023-07-15 17:44] LABS: Erythrocyte Sedimentation Rate 16 mm/Hr (0-30)
[2023-07-16 02:50] LABS: ALT 19 U/L (8-44); AST 19 U/L (13-35); BUN/Creat Ratio 28.17 Ratio (12.00-20.00); Blood Urea Nitrogen 16.9 mg/dL (9.0-27.0); Calcium 9.8 mg/dL (8.7-10.3); Carbon Dioxide 23.7 mmol/L (21.6-31.8); Chloride 105 mmol/L (96-109); Creatine Kinase 61 U/L (26-186); Glucose 100 mg/dL (70-110); Potassium 4.6 mmol/L (3.5-5.5); Rheumatoid Factor, Qnt <15 IU/mL (0-15); Sodium 141 mmol/L (135-145); T4, Free (Free Thyroxine) 1.09 ng/dL (0.80-1.80); Uric Acid 4.6 mg/dL (2.9-7.7)
[2023-07-16 03:35] LABS: Cyclic Citrull Pep IgG Unit <1.5 U/mL (<=3.9); Cyclic Citrullinated Pep IgG Negative
[2023-07-16 09:40] LABS: Angiotensin-1 Converting Enz. 32 U/L (8-52)
[2023-07-16 13:02] LABS: HLA B27 NEGATIVE
== END | disposition home or self-care (01) ==
LOC: LABWHC1 10:06
PROVIDERS: ATTEND Orthopaedic Surgery
DX: M19.042 Primary osteoarthritis, left hand (principal); M19.041 Primary osteoarthritis, right hand; G56.03 Carpal tunnel syndrome, bilateral upper limbs; R20.2 Paresthesia of skin
CPT/HCPCS: 36415; 80048; 82164; 82306; 82550; 83520; 84439; 84443; 84450; 84460; 84550; 85025; 85652; 86038; 86140; 86200; 86431; 86812

== ENCOUNTER → 2024-01-21 | Outpatient (CLI) | payer MEDICARE ==
--- NOTE | 2024-01-23 20:20 | MM ---
Reason for Exam: Screening (asymptomatic). Last mammogram was performed 1 year(s) and 3 month(s) ago. Patient History: Menarche at age 14. First Full-Term at age 26. Postmenopausal. Estrogen for 1 year, 7 months. Progesterone for 1 year, 7 months. 1980, Excisional Biopsy on the Right side. Maternal aunt had breast cancer, age 70. Niece had breast cancer, age 60. Risk Values: Joanne 5 year model risk: 1.9%. NCI Lifetime model risk: 4.8%. Prior Study Comparison: 09/12/2020 Bilateral Screening Mammogram, [facility]. 10/04/2021 Bilateral Screening Mammogram, [facility]. 10/23/2022 Bilateral MG 3D screening mammo w/cad, [facility]. Tissue Density: There are scattered areas of fibroglandular density. Findings: Analyzed By CAD. Chronic nodularity left breast. Unchanged asymmetric density anterior superior right MLO view. There is no suspicious group of microcalcifications or new suspicious mass in either breast. Overall Assessment: Benign, BI-RAD 2 Management: Screening Mammogram of both breasts in 1 year. . Patient should continue monthly self-breast exams. A clinical breast exam by your physician is recommended on an annual basis. This exam should not preclude additional follow-up of suspicious palpable abnormalities. Note on Joanne scores and lifetime risk: 1. A Joanne score greater than 3% is considered moderate risk. If this is the case, consider specialist referral to assess eligibility for a risk reducing agent. 2. If overall lifetime risk for the development of breast cancer is 20% or higher, the patient may qualify for future screening with alternating mammogram and breast MRI. Electronically signed and approved by: Nettie León M.D. Radiologist
== END | disposition home or self-care (01) ==
LOC: RADMAMWWP 09:42
PROVIDERS: ATTEND Family Medicine
DX: Z12.31 Encounter for screening mammogram for malignant neoplasm of breast (principal); Z80.3 Family history of malignant neoplasm of breast; Z78.0 Asymptomatic menopausal state
CPT/HCPCS: 77063; 77067

== ENCOUNTER 2025-03-22 03:29 | Emergency (ER) | payer MEDICARE ==
--- NOTE | 2025-03-22 03:41 | ED ---
SOB HPI - General Chief Complaint: Shortness of Breath Stated Complaint: Difficulty Breathing Time Seen by Provider: 03/22/25 03:40 Source: patient, RN notes reviewed, old records reviewed Mode of arrival: wheelchair Limitations: no limitations - History of Present Illness Initial Comments: This is a 75 female to ER for shortness of breath. Patient states she woke up tonight with difficulty breathing trouble catching her breath cough and congestion which just feels like she is having rapid breathing MD Complaint: shortness of breath, cough, "asthma attack", anxiety -: hour(s) Consistency: constant Improves With: nothing, other (Patient awoke with the symptoms) Worsens With: exertion Context: recent URI, anxiety, recent illness Associated Symptoms: denies other symptoms - Related Data Home Medications Medication Instructions Recorded Confirmed Atorvastatin [Lipitor] 10 mg PO HS 05/18/14 02/02/24 Levothyroxine Sodium [Synthroid] 25 mcg PO QAM 05/18/14 02/02/24 Phenytoin Sodium Extended 200 mg PO HS 05/18/14 02/02/24 [Dilantin] Aspirin 81 mg PO HS 08/07/17 02/02/24 Cholecalciferol (Vitamin D3) 1,000 unit PO QAM 08/07/17 02/02/24 [Vitamin D3] Cyclobenzaprine [Flexeril] 10 mg PO DAILY PRN 08/07/17 02/02/24 Phenytoin Sodium Extended 100 mg PO QAM 08/07/17 02/02/24 [Dilantin] Cetirizine HCl [Zyrtec] 10 mg PO DAILY 05/20/22 02/02/24 Fluticasone Nasal [place] [Flonase 1 spray EA NOSTRIL DAILY 02/02/24 02/02/24 Nasal [place]] Melatonin [Melatonin Tr] 10 mg PO HS 02/02/24 02/02/24 traZODone HCL [Desyrel] 50 mg PO DIRECTED PRN 02/02/24 02/02/24 Previous Rx's Medication Instructions Recorded Amoxic-Pot Clav 875-125Mg 1 tab PO Q12HR #20 tablet 03/22/25 [Augmentin 875-125] Allergies Allergy/AdvReac Type Severity Reaction Status Date / Time No Known Allergies Allergy Verified 03/22/25 03:36 Review of Systems ROS Statement: Those systems with pertinent positive or pertinent negative responses have been documented in the HPI. ROS Other: All systems not noted in ROS Statement are negative. Past Medical History Past Medical History: Hyperlipidemia, Seizure Disorder, Sleep Apnea/CPAP/BIPAP Additional Past Medical History / Comment(s): HX OF "BLACKOUTS AND 1 SEIZURE APPROX 10 YRS AGO",HAVING PAIN RT LOWER ABDOMINAL QUAD History of Any Multi-Drug Resistant Organisms: None Reported Past Surgical History: Section, Cholecystectomy, Tubal Ligation Additional Past Surgical History / Comment(s): CSECTX2 Past Anesthesia/Blood Transfusion Reactions: Motion Sickness Past Psychological History: No Psychological Hx Reported Smoking Status: Never smoker Past Alcohol Use History: None Reported Past Drug Use History: None Reported General Exam Limitations: no limitations General appearance: alert, in no apparent distress Head exam: Present: atraumatic, normocephalic, normal inspection Eye exam: Present: normal appearance, PERRL, EOMI. Absent: scleral icterus, conjunctival injection, periorbital swelling ENT exam: Present: normal exam, mucous membranes moist Neck exam: Present: normal inspection. Absent: tenderness, meningismus, lymphadenopathy Respiratory exam: Present: normal lung sounds bilaterally. Absent: respiratory distress, wheezes, rales, rhonchi, stridor Cardiovascular Exam: Present: regular rate, normal rhythm, normal heart sounds. Absent: systolic murmur, diastolic murmur, rubs, gallop, clicks GI/Abdominal exam: Present: soft, normal bowel sounds. Absent: distended, tenderness, guarding, rebound, rigid Extremities exam: Present: normal inspection, full ROM, normal capillary refill. Absent: tenderness, pedal edema, joint swelling, calf tenderness Back exam: Present: normal inspection Neurological exam: Present: alert, oriented X3, CN II-XII intact Psychiatric exam: Present: normal affect, normal mood Skin exam: Present: warm, dry, intact, normal color. Absent: rash Course Vital Signs 03/22/25 03/22/25 03/22/25 03:32 03:48 03:57 Temperature 97.4 F L Pulse Rate 86 68 70 Respiratory 22 Rate Blood Pressure 144/79 O2 Sat by Pulse 99 Oximetry 03/22/25 03/22/25 06:00 07:24 Temperature 97.9 F Pulse Rate 73 73 Respiratory 19 18 Rate Blood Pressure 136/62 109/62 O2 Sat by Pulse 95 97 Oximetry - Reevaluation(s) Reevaluation #1: Medical records reviewed Reevaluation #2: Patient symptoms improving here in the ER Reevaluation #3: Patient informed of results and questions answered Reevaluation #4: Was pt. sent in by a medical professional or institution (, CHERIE, INSPECTOR TECHNICIAN, urgent care, hospital, or senior living...) When possible be specific @ -no Did you speak to anyone other than the patient for history (EMS, parent, family, police, friend...)? What history was obtained from this source @ -no Did you review nursing and triage notes (agree or disagree)? Why? @ -agree Are old charts reviewed (outside hosp., previous admission, EMS record, old EKG, old radiological studies, urgent care reports/EKG's, senior living records)? Report findings @ -yes Differential Diagnosis (chest pain, altered mental status, abdominal pain women, abdominal pain men, vaginal bleeding, weakness, fever, dyspnea, syncope, headache, dizziness, GI bleed, back pain, seizure, CVA, palpatations, mental health, musculoskeletal)? @ -prior EKG interpreted by me (3pts min.). @ -yes X-rays interpreted by me (1pt min.). @ -yes negative for acute disease CT interpreted by me (1pt min.). @ -no U/S interpreted by me (1pt. min.). @ -no What testing was considered but not performed or refused? (CT, X-rays, U/S, labs)? Why? @ -none What meds were considered but not given or refused? Why? @ -none Did you discuss the management of the patient with other professionals (professionals i.e. , CHERIE, INSPECTOR TECHNICIAN, lab, RT, psych nurse, social organization professor, concentrator operator, teacher, chief privacy officer, rn field case manager)? Give summary @ -no Was smoking cessation discussed for >3mins.? @ -no Was critical care preformed (if so, how long)? @ -no Were there social determinants of health that impacted care today? How? (Homelessness, low income, unemployed, alcoholism, drug addiction, transportatio n, low edu. Level, literacy, decrease access to med. care, care home, rehab)? @ -none Was there de-escalation of care discussed even if they declined (Discuss DNR or withdrawal of care, Hospice)? DNR status @ -no What co-morbidities impacted this encounter? (DM, HTN, Smoking, COPD, CAD, Cancer, CVA, ARF, Chemo, Hep., AIDS, mental health diagnosis, sleep apnea, morbid obesity)? @ -none Was patient admitted / discharged? Hospital course, mention meds given and route, prescriptions, significant lab abnormalities, going to OR and other pertinent info. @ - 75 female with acute pneumonia here in the ER patient will be treated for pneumonia and can be discharged home Discharge Undiagnosed new problem with uncertain prognosis? @ -no Drug Therapy requiring intensive monitoring for toxicity (Heparin, Nitro, Insulin, Cardizem)? @ -no Were any procedures done? @ -no Diagnosis/symptom? @ -Pneumonia Acute, or Chronic, or Acute on Chronic? @ -Acute Uncomplicated (without systemic symptoms) or Complicated (systemic symptoms)? @ -Complicated Side effects of treatment? @ -no Exacerbation, Progression, or Severe Exacerbation? @ -exacerbation Poses a threat to life or bodily function? How? (Chest pain, [place], [place], pneumonia, PE, COPD, DKA, ARF, appy, cholecystitis, CVA, Diverticulitis, Homicidal, Suicidal, threat to staff... and all critical care pts) @ -yes extremes of age Reevaluation #5: Differential Dyspnea: Coronary syndrome, arrhythmia, tamponade, asthma, COPD, pulmonary embolism, pneumonia, pneumothorax, pulmonary effusion, anaphylaxis, diabetic ketoacidosis, flailed chest, pulmonary contusion, diaphragmatic rupture, anemia, neuromuscular, this is not meant to be an all-inclusive list. Medical Decision Making - Medical Decision Making 75 female with acute pneumonia here in the ER patient will be treated for pneumonia and can be discharged home - Lab Data Result diagrams: 03/22/25 04:18 03/22/25 04:18 Lab Results 03/22/25 03/22/25 03/22/25 Range/Units 04:18 04:18 04:18 WBC 6.34 (4.50-10.00) 10*3/uL RBC 4.72 (4.10-5.20) 10*6/uL Hgb 14.3 (12.0-15.0) g/dL Hct 41.9 (37.2-46.3) % MCV 88.8 (80.0-97.0) fL MCH 30.3 (27.0-32.0) pg MCHC 34.1 (32.0-37.0) g/dL Plt Count 223 (140-440) 10*3/uL MPV 9.6 (9.5-12.2) fL Immature Gran % (Auto) 0.2 % Neutrophils % 58.0 % Lymphocytes % 33.4 % Monocytes % 7.3 % Eosinophils % 0.5 % Basophils % 0.6 % Immature Gran # 0.01 (0.00-0.04) 10*3/uL Neutrophils # 3.68 (1.80-7.70) 10*3/uL Lymphocytes # 2.12 (0.90-5.00) 10*3/uL Monocytes # 0.46 (0.20-1.00) 10*3/uL Eosinophils # 0.03 L (0.04-0.35) 10*3/uL Basophils # 0.04 (0.00-0.10) 10*3/uL PT 10.8 (10.0-12.5) sec INR 1.0 (<1.2) APTT 25.1 (22.0-30.0) sec D-Dimer 0.25 (<0.60) mg/L FEU Sodium 141 (137-145) mmol/L Potassium 4.0 (3.5-5.1) mmol/L Chloride 106 (98-107) mmol/L Carbon Dioxide 20 L (22-30) mmol/L Anion Gap 15 mmol/L BUN 19 H (7-17) mg/dL Creatinine 0.57 (0.52-1.04) mg/dL Est GFR (CKD-EPI)AfAm >90 (>60 ml/min/1.73 sqM) Est GFR (CKD-EPI)NonAf >90 (>60 ml/min/1.73 sqM) Glucose 115 H (74-99) mg/dL Lactic Ac Sepsis Rflx Plasma Lactic Acid Walter (0.7-2.0) mmol/L Calcium 10.1 (8.4-10.2) mg/dL Magnesium 2.0 (1.6-2.3) mg/dL Total Bilirubin 0.4 (0.2-1.3) mg/dL AST 29 (14-36) U/L ALT 25 (4-34) U/L Alkaline Phosphatase 117 (38-126) U/L Troponin I (0.000-0.034) ng/mL NT-Pro-B Natriuret Pep 28 pg/mL Total Protein 7.1 (6.3-8.2) g/dL Albumin 4.4 (3.5-5.0) g/dL Urine Color Urine Appearance (Clear) Urine pH (5.0-8.0) Ur Specific [place] (1.001-1.035) Urine Protein (Negative) Urine Glucose (UA) (Negative) Urine Ketones (Negative) Urine Blood (Negative) Urine Nitrite (Negative) Urine Bilirubin (Negative) Urine Urobilinogen (<2.0) mg/dL Ur Leukocyte Esterase (Negative) 03/22/25 03/22/25 03/22/25 Range/Units 04:18 04:18 05:05 WBC (4.50-10.00) 10*3/uL RBC (4.10-5.20) 10*6/uL Hgb (12.0-15.0) g/dL Hct (37.2-46.3) % MCV (80.0-97.0) fL MCH (27.0-32.0) pg MCHC (32.0-37.0) g/dL Plt Count (140-440) 10*3/uL MPV (9.5-12.2) fL Immature Gran % (Auto) % Neutrophils % % Lymphocytes % % Monocytes % % Eosinophils % % Basophils % % Immature Gran # (0.00-0.04) 10*3/uL Neutrophils # (1.80-7.70) 10*3/uL Lymphocytes # (0.90-5.00) 10*3/uL Monocytes # (0.20-1.00) 10*3/uL Eosinophils # (0.04-0.35) 10*3/uL Basophils # (0.00-0.10) 10*3/uL PT (10.0-12.5) sec INR (<1.2) APTT (22.0-30.0) sec D-Dimer (<0.60) mg/L FEU Sodium (137-145) mmol/L Potassium (3.5-5.1) mmol/L Chloride (98-107) mmol/L Carbon Dioxide (22-30) mmol/L Anion Gap mmol/L BUN (7-17) mg/dL Creatinine (0.52-1.04) mg/dL Est GFR (CKD-EPI)AfAm (>60 ml/min/1.73 sqM) Est GFR (CKD-EPI)NonAf (>60 ml/min/1.73 sqM) Glucose (74-99) mg/dL Lactic Ac Sepsis Rflx Y Plasma Lactic Acid Walter 2.8 H* (0.7-2.0) mmol/L Calcium (8.4-10.2) mg/dL Magnesium (1.6-2.3) mg/dL Total Bilirubin (0.2-1.3) mg/dL AST (14-36) U/L ALT (4-34) U/L Alkaline Phosphatase (38-126) U/L Troponin I <0.012 (0.000-0.034) ng/mL NT-Pro-B Natriuret Pep pg/mL Total Protein (6.3-8.2) g/dL Albumin (3.5-5.0) g/dL Urine Color Urine Appearance (Clear) Urine pH (5.0-8.0) Ur Specific [place] (1.001-1.035) Urine Protein (Negative) Urine Glucose (UA) (Negative) Urine Ketones (Negative) Urine Blood (Negative) Urine Nitrite (Negative) Urine Bilirubin (Negative) Urine Urobilinogen (<2.0) mg/dL Ur Leukocyte Esterase (Negative) 03/22/25 Range/Units 05:21 WBC (4.50-10.00) 10*3/uL RBC (4.10-5.20) 10*6/uL Hgb (12.0-15.0) g/dL Hct (37.2-46.3) % MCV (80.0-97.0) fL MCH (27.0-32.0) pg MCHC (32.0-37.0) g/dL Plt Count (140-440) 10*3/uL MPV (9.5-12.2) fL Immature Gran % (Auto) % Neutrophils % % Lymphocytes % % Monocytes % % Eosinophils % % Basophils % % Immature Gran # (0.00-0.04) 10*3/uL Neutrophils # (1.80-7.70) 10*3/uL Lymphocytes # (0.90-5.00) 10*3/uL Monocytes # (0.20-1.00) 10*3/uL Eosinophils # (0.04-0.35) 10*3/uL Basophils # (0.00-0.10) 10*3/uL PT (10.0-12.5) sec INR (<1.2) APTT (22.0-30.0) sec D-Dimer (<0.60) mg/L FEU Sodium (137-145) mmol/L Potassium (3.5-5.1) mmol/L Chloride (98-107) mmol/L Carbon Dioxide (22-30) mmol/L Anion Gap mmol/L BUN (7-17) mg/dL Creatinine (0.52-1.04) mg/dL Est GFR (CKD-EPI)AfAm (>60 ml/min/1.73 sqM) Est GFR (CKD-EPI)NonAf (>60 ml/min/1.73 sqM) Glucose (74-99) mg/dL Lactic Ac Sepsis Rflx Plasma Lactic Acid Walter (0.7-2.0) mmol/L Calcium (8.4-10.2) mg/dL Magnesium (1.6-2.3) mg/dL Total Bilirubin (0.2-1.3) mg/dL AST (14-36) U/L ALT (4-34) U/L Alkaline Phosphatase (38-126) U/L Troponin I (0.000-0.034) ng/mL NT-Pro-B Natriuret Pep pg/mL Total Protein (6.3-8.2) g/dL Albumin (3.5-5.0) g/dL Urine Color Colorless Urine Appearance Clear (Clear) Urine pH 7.5 (5.0-8.0) Ur Specific [place] 1.009 (1.001-1.035) Urine Protein Negative (Negative) Urine Glucose (UA) Negative (Negative) Urine Ketones Negative (Negative) Urine Blood Negative (Negative) Urine Nitrite Negative (Negative) Urine Bilirubin Negative (Negative) Urine Urobilinogen <2.0 (<2.0) mg/dL Ur Leukocyte Esterase Negative (Negative) - EKG Data -: EKG Interpreted by Me (EKG is sinus 73 ID [id number] QRS 85 QTc 445) - Radiology Data Radiology results: report reviewed (Chest x-ray is positive for pneumonia), image reviewed Disposition Clinical Impression: Community acquired pneumonia Disposition: HOME SELF-CARE Condition: Good Instructions (If sedation given, give patient instructions): Community Acquired Pneumonia (ED) Prescriptions: Amoxic-Pot Clav 875-125Mg [Augmentin 875-125] 1 tab PO Q12HR #20 tablet Is patient prescribed a controlled substance at d/c from ED?: No Referrals: Sharif Rivera DO [Primary Care Provider] - 1-2 days Time of Disposition: 07:00
[2025-03-22] MEDS: IPRATROPIUM-ALBUTEROL 3 ML NEB INHALATION STA (03:46)
[2025-03-22 04:26] LABS: Basophils # (A) 0.04 10*3/uL (0.00-0.10); Basophils % (A) 0.6 %; Eosinophils # (A) 0.03 10*3/uL (0.04-0.35); Eosinophils % (A) 0.5 %; HCT 41.9 % (37.2-46.3); HGB 14.3 g/dL (12.0-15.0); Lymphocytes # (A) 2.12 10*3/uL (0.90-5.00); Lymphocytes % (A) 33.4 %; MCH 30.3 pg (27.0-32.0); MCHC 34.1 g/dL (32.0-37.0); MCV 88.8 fL (80.0-97.0); Monocytes # (A) 0.46 10*3/uL (0.20-1.00); Monocytes % (A) 7.3 %; Neutrophils # (A) 3.68 10*3/uL (1.80-7.70); Neutrophils % (A) 58.0 %; Platelet Count 223 10*3/uL (140-440); RBC 4.72 10*6/uL (4.10-5.20); RDW 14.5 % (11.5-14.5); WBC 6.34 10*3/uL (4.50-10.00)
[2025-03-22 04:51] LABS: ALT 25 U/L (4-34); AST 29 U/L (14-36); African American GFR (CKD) >90 (>60 ml/min/1.73 sqM); Albumin 4.4 g/dL (3.5-5.0); Alkaline Phosphatase 117 U/L (38-126); Anion Gap 15 mmol/L; Blood Urea Nitrogen 19 mg/dL (7-17); Calcium 10.1 mg/dL (8.4-10.2); Carbon Dioxide 20 mmol/L (22-30); Chloride 106 mmol/L (98-107); Glucose 115 mg/dL (74-99); INR 1.0 (<1.2); Magnesium 2.0 mg/dL (1.6-2.3); Non-African American GFR(CKD) >90 (>60 ml/min/1.73 sqM); Partial Thromboplastin Time 25.1 sec (22.0-30.0); Potassium 4.0 mmol/L (3.5-5.1); Prothrombin Time 10.8 sec (10.0-12.5); Sodium 141 mmol/L (137-145); Total Protein 7.1 g/dL (6.3-8.2)
[2025-03-22 05:00] LABS: NT-Pro-B-Type Natriuretic Pept 28 pg/mL
[2025-03-22] MEDS: ONDANSETRON 4 MG/2 ML VIAL IVP STA (05:12)
[2025-03-22] MEDS: SODIUM CHLORIDE 0.9% 1,000 ML IV ONE (05:13)
--- NOTE | 2025-03-22 06:04 | XR ---
EXAM: XR Chest, 2 Views CLINICAL HISTORY: ITS.REASON XR Reason: difficulty breathing TECHNIQUE: Frontal and lateral views of the chest. COMPARISON: X-ray dated 06/20/2016. FINDINGS: Lungs: Consolidative opacity seen within the left lower lobe. Pleural space: Unremarkable. No pneumothorax. Heart: Mild enlargement of the cardiac silhouette. Mediastinum: Unremarkable. Normal mediastinal contour. Bones/joints: Degenerative changes are seen within the spine and shoulders. No acute fracture. Vasculature: Calcifications overlie the aorta. Upper abdomen: Elevation of the right diaphragm. IMPRESSION: Left lower lobe pneumonia.
[2025-03-22 06:45] LABS: Bilirubin,Urine Negative (Negative); Blood,Urine Negative (Negative); Color,Urine Colorless; Glucose,Urine (UA) Negative (Negative); Ketones,Urine Negative (Negative); Leukocyte Esterase,Urine Negative (Negative); Nitrite,Urine Negative (Negative); PH, Urine 7.5 (5.0-8.0); Protein,Urine Negative (Negative); Specific Gravity,Urine 1.009 (1.001-1.035); Urobilinogen,Urine <2.0 mg/dL (<2.0)
[2025-03-22 06:56] VITALS: PULSE 73
[2025-03-22] MEDS: LORazepam 1 MG/0.5 ML VIAL IV STA (07:15)
[2025-03-22] MEDS: cefTRIAXone IN SWFI 1,000 MG/10 ML SYRINGE IVP STA (07:17)
[2025-03-22] MEDS: AMOXIC-POT CLAV 875-125MG 1 EACH TAB PO STA (07:17)
[2025-03-22 07:28] VITALS: BP 109/62; RESP 18; TEMP 97.9
== END 2025-03-22 07:32 | disposition home or self-care (01) ==
LOC: EC 03:29
DX: J18.9 Pneumonia, unspecified organism (principal)
CPT/HCPCS: 36415; 94640; 93005; 85379; 83880; 80053; 83605; 83735; 84484; 85025; 85610; 85730; 81003; 71046; 99285; 96374; 96375; 96361; J2405; J0696